=== PATIENT | female | born 1965 | race Caucasian/White ===

== ENCOUNTER 2024-06-25 12:21 | Emergency (ER) | payer OTHER, SELFPAY ==
[2024-06-25] VITALS (17 sets, daily range): BP systolic 106–141; BP diastolic 56–86; BMI 28.7
[2024-06-25] MEDS: DIPRIVAN 50 MG IV (13:29)
[2024-06-25] MEDS: DIPRIVAN 30 MG IV (13:31)
[2024-06-25] MEDS: DIPRIVAN 20 MG IV (13:32)
[2024-06-25] MEDS: DIPRIVAN 40 MG IV (13:34)
--- NOTE | 2024-06-25 13:37 | ED.MUSCINJ ---
HPI-Injury
<Peri Verde DO - Last Filed: 06/25/24 13:40>
General
Chief Complaint: Musculo-Skeletal Complaint
Time Seen by Provider: 06/25/24 12:34
<Obey Lopez PA-C - Last Filed: 06/26/24 08:03>
General
Source: patient
History of Present Illness-Injury
Initial Injury comments:
58-year-old female with no significant past medical history presenting to the emergency department via EMS after she was tripping going up an embankment while walking her dog and fell injuring her right ankle. EMS noted an obvious deformity and
placed a temporary splint. Patient denies any history of previous injury or surgery. Moderate pain at rest. No other injuries were sustained.
Past History
<Obey Lopez PA-C - Last Filed: 06/26/24 08:03>
Past History
ED Past Medical History: None
ED Past Surgical History: Gynecological
Social History
Tobacco: Non-smoker
Alcohol: Occasional
Drug: None
Personal:
Living: with family
Employment: Employed
Review of Systems
<DELIA Swanson Last Filed: 06/26/24 08:03>
Review of Systems
All Other Systems: ROS reviewed and negative except as documented in HPI and ROS
Phy Exam
<Obey Lopez PA-C - Last Filed: 06/26/24 08:03>
Physical Exam
Physical Exam:
GENERAL: Alert , in no apparent distress
EYE: conjunctiva clear
Head: Normocephalic atraumatic
NECK: Supple,
ENT: mmm.
LUNGS: no acute respiratory distress
NEUROLOGICAL: Alert and oriented
SKIN: Warm and dry, skin intact.
MUSCULOSKELETAL: right lower extremity: Deformity to the right ankle noted with tibia appearing too far anterior. Patient has a easily palpable pedal and tibial pulse. Cap refills less than 2 seconds. She does range of motion her digits without
much difficulty. No proximal tib-fib tenderness. No tenderness to the knee. Sensation grossly intact to light touch.
PSYCH: Normal and appropriate interaction.
Scores
<Obey Lopez PA-C - Last Filed: 06/26/24 08:03>
Heart Failure Risk
Heart Failure Risk Score: Not Applicable
Heart Score for Chest Pain Patients
STEMI patient?: Not applicable
Withdrawal Assessment of Alcohol
Withdrawal Assessment Completed?: Not applicable
Injury Course
<Peri Verde DO - Last Filed: 06/25/24 13:40>
Orders/Labs/Results
Orders:
Orders
06/25/24 12:28
Ankle, Right 3 view CR [CR Ankle - Right Min 3 Views *] Urgent
Comment:
Reason For Exam: fall/pain/deformity
06/25/24 12:34
CR Leg Tibia/fibula Right 2 Vw Urgent
Comment:
Reason For Exam: fall, pain, deformity
06/25/24 13:16
Propofol [Diprivan] 20 ml .ROUTE .STK-MED
06/25/24 13:29
Propofol [Diprivan] 50 mg IV NOW STA
06/25/24 13:31
Propofol [Diprivan] 30 mg IV NOW STA
06/25/24 13:32
Propofol [Diprivan] 20 mg IV NOW STA
06/25/24 13:34
Propofol [Diprivan] 40 mg IV NOW STA
06/25/24 13:36
Ankle, Right 3 view CR [CR Ankle - Right Min 3 Views *] Urgent
Comment:
Reason For Exam: s/p reduction
06/25/24 14:24
Crutches-Treatment ONCE
<Obey Lopez PA-C - Last Filed: 06/26/24 08:03>
Orders/Labs/Results
Orders:
Orders
06/25/24 12:28
Ankle, Right 3 view CR [CR Ankle - Right Min 3 Views *] Urgent
Comment:
Reason For Exam: fall/pain/deformity
06/25/24 12:34
CR Leg Tibia/fibula Right 2 Vw Urgent
Comment:
Reason For Exam: fall, pain, deformity
06/25/24 13:16
Propofol [Diprivan] 20 ml .ROUTE .STK-MED
06/25/24 13:29
Propofol [Diprivan] 50 mg IV NOW STA
06/25/24 13:31
Propofol [Diprivan] 30 mg IV NOW STA
06/25/24 13:32
Propofol [Diprivan] 20 mg IV NOW STA
06/25/24 13:34
Propofol [Diprivan] 40 mg IV NOW STA
06/25/24 13:36
Ankle, Right 3 view CR [CR Ankle - Right Min 3 Views *] Urgent
Comment:
Reason For Exam: s/p reduction
06/25/24 14:24
Crutches-Treatment ONCE
Procedures
<Peri Verde DO - Last Filed: 06/25/24 13:40>
Moderate Sedation
ASA Risk Score: Class I
Chart and allergies reviewed: Yes
Consent for anesthesia obtained: Yes
Time out completed (validating right patient & procedure): Yes
Moderate Sedation Start Time(when first medication is given): 13:29
History of difficult intubation: No
Airway free of obstruction: Yes
Patient has a gag reflex: Yes
Patient is able to open mouth: Yes
Patient has no dentures: Yes
Patient has no loose teeth: Yes
Medication administered by Provider during Moderate Sedation: IV Propofol (mg)
Total dose administered: 140
Time drug administered: 13:29
Joint/Fracture Reduction
Right Ankle:
Indication for procedure:: fracture/dislocation
Procedure completed by: Obey Lopez
Consent form signed: Yes
Joint reduced: with anesthesia sedation
Injury was: closed
Further treatement: no treatment needed
Post reduction exam: stable
Capillary Refill: normal
Normal distal neurovascular exam?: Yes
<Obey Lopez PA-C - Last Filed: 06/26/24 08:03>
Moderate Sedation
Moderate Sedation Procedure End Time: 13:44
<Obey Lopez PA-C - Last Filed: 06/26/24 08:03>
MDM/Problems Addressed
Differential Diagnosis Includes:
Ankle fracture, dislocation, no current symptoms to suggest arterial or neurologic injury
MDM/Problems Addressed:
58-year-old female presenting to the emergency department for evaluation of right ankle injury with suspected fracture/dislocation. Patient brought immediately to x-ray for further evaluation which confirms suspicion and suspected trimalleolar
fracture with tibial dislocation. Patient consented for closed reduction and conscious sedation. See above for details. Patient works for [employer] and states she will follow-up with orthopedics through their system. Reduction film
ordered. Plan for discharge following. Patient's daughter here in the emergency department and will be taking the patient home.
<bOey Lopez PA-C - Last Filed: 06/26/24 08:03>
*Radiology
Radiology exam reviewed: preliminary read by ED provider (Bimalleolar fracture with distal tibia dislocation) and radiology read reviewed
*Pulse Oximetry
Patient hypoxic: no
*Critical Care Note
Total Time (30-74mins, 75-104mins- exclusive of procedures): Not Applicable
<DELIA Swanson Last Filed: 06/26/24 08:03>
Patient Management
Escalation/DeEscalation of care consider admission/obs:
Reduction films show successful tibiotalar reduction. Patient cleared sedation protocol without difficulty. Provided with crutches to be discharged home with. Advised to be remain nonweightbearing. Otherwise stable for discharge home
ED Attending Note
<ePri Verde DO - Last Filed: 06/25/24 13:40>
ED Attending Note
Patient seen and examined by attending physician: Yes
I performed the substantive portion of visit, reviewed & personally made and approve the management plan that is documented in note by myself or CHRISTOFER.: Yes
I performed a history and physical exam of patient and discussed management with resident, I reviewed resident's note and agree with documented findings and plan of care.: Yes
ED Attending Note:
58-year-old female presenting after right ankle injury. Patient arrives with obvious deformity to the right ankle. No neurovascular compromise on arrival with palpable pulses and sensation. Pain controlled. On x-ray imaging, unstable ankle
fracture. Plan for moderate sedation and reduction procedure. Please see procedure note. Will appropriately splint with outpatient orthopedic follow-up.
-
Portions of this chart may have been created with voice recognition software.� Occasional wrong word or��sound alike� substitutions may have occurred due to the inherent limitations of voice recognition software.
Discharge Plan
Departure
Patient Disposition: Home (Routine Discharge)
Date of Disposition: 06/25/24
Time of Disposition: 14:17
Patient with high blood pressure during this ER visit?: No
Discharge Problem:
Bimalleolar fracture of right ankle, Dislocation of distal end of right tibia
Instructions: Ankle Fracture (DC)
Referrals:
Wesley Marley MD [Active] - (Ortho)
Interventions
Interventions:
*Risk Screen - Suicide Last Done: 06/25/24 12:26
*General Assessment Last Done: 06/25/24 12:29
*Neglect/Abuse Screening Last Done: 06/25/24 12:26
ED- Fall Risk Assessment Last Done: 06/25/24 12:28
*ED COVID-19 Vaccine History Last Done: 06/25/24 12:26
*Nursing Disposition Last Done: 06/25/24 14:43
ED-Musculoskeletal Assessment Last Done: 06/25/24 12:30
Discharge Date and Time
Discharge Date/Time: 06/25/24 15:05
Print Language: HUNGARIAN
== END 2024-06-25 15:05 | disposition home or self-care (01) ==
LOC: EMR 12:21
PROVIDERS: EMERGENCY PHYSICIAN Student in an Organized Health Care Education/Training Program
DX: S82.841A Displaced bimalleolar fracture of right lower leg, initial encounter for closed fracture (principal); S93.04XA Dislocation of right ankle joint, initial encounter; W10.2XXA Fall (on)(from) incline, initial encounter; Y93.K1 Activity, walking an animal
CPT/HCPCS: 27810; 99285; 99152; 73590; 73610